=== PATIENT | female | born 1945 | race Caucasian/White ===

== ENCOUNTER → 2019-07-20 | Outpatient (CLI) | payer MEDICARE, OTHER, SELFPAY ==
--- NOTE | 2019-07-20 14:49 | MASS_PTH ---
PATIENT: MAGGIE FAIRBANKS LOC: [facility] U#:[id number] AGE/SX: 73/F ROOM: RE07/20/[address]: Dr. Talon Perez MD : 1945 BED: DIS: 07/20/2019 SPEC #: [id number] RECD: 07/20/19 15:30 STATUS: BELKIS SANDS #: [id number] VEDA: 07/20/19 14:[address]: Talon Perez DEPT: SURGICAL PATHOLOGY RECD BY: Abdullahi Philip Tissues: Nose, NOS Procedures: Special Stain Group I Surgery Specimen Level IV GMS Stain (control) HEADER OPERATION: PRE-OP DIAGNOSIS: Left nostril growth/mass TISSUE SUBMITTED: Left nasal mass MICROSCOPIC DIAGNOSIS Left nasal mass, biopsy: Pyogenic granuloma. Fibrinopurulent material. Negative for fungal organisms. See comment. AM:edi 07/22/19 COMMENT GMS stain with matched control supports the above diagnosis. MICROSCOPIC DESCRIPTION Slides are reviewed. GROSS DESCRIPTION Received in fixative is one container labeled with the patient's name and designated left nasal mass. The specimen consists of multiple irregular fragments of rivas soft tissue that in aggregate measure 2 x 1 x 0.3 cm. The specimen is totally submitted in one cassette. / SJ:rg 07/21/19 TC:2 CPT: 11546, 05656
== END | disposition home or self-care (01) ==
LOC: LABSPEC 15:27
PROVIDERS: Referring Provider Otolaryngology; Visit Provider Otolaryngology
DX: J34.89 Other specified disorders of nose and nasal sinuses (principal)
CPT/HCPCS: 88305; 88312